=== PATIENT | female | born 1965 | race Caucasian/White ===

== ENCOUNTER 2017-03-30 22:13 | Emergency (ER) | payer BC ==
[2017-03-30 22:25] VITALS: BP 120/73; PULSE 98; TEMP 98.6; BMI 29.2
--- NOTE | 2017-03-31 02:01 | PDOC ---
History of Present Illness - General Chief Complaint: Abscess Boil Stated Complaint: WOUND INFECTION Time Seen by Provider: 03/31/17 00:45 History Source: Patient Exam Limitations: No Limitations - History of Present Illness Initial Comments: 03/31/17 02:01 CC: R buttock abscess Patient is a 51 y.o. female with no significant PMH who presented to our ED today with a c/o a painful abscess on her R buttock. Patient states she thinks the abscess started when she inadvertently scratched herself last Thursday ( March 22) and she noticed an abscess forming so she went to her PCP who gave her a prescription for Keflex. Patient states she did not start the Keflex until this Thursday (03/29) however the pain continued to increase prompting her visit to our facility tonight. Past History - Past Medical History Allergies/Adverse Reactions: Allergies Allergy/AdvReac Type Severity Reaction Status Date / Time No Known Allergies Allergy Verified 03/30/17 22:25 Home Medications: Ambulatory Orders Oxycodone HCl/Acetaminophen [Percocet 10-325 mg Tablet] 1 each PO BID #10 tablet MDD 2 tablets 03/31/17 Sulfamethoxazole/Trimethoprim [Bactrim Ds -] 1 tab PO BID #14 tablet 03/31/17 - Surgical History Appendectomy: Yes Cholecystectomy: Yes - Psycho/Social/Smoking Cessation Hx Suicidal Ideation: No Smoking History: Never smoked Review of Systems - Review of Systems Constitutional: No: Chills, Fever HEENTM: No: Blurred Vision, Double Vision, Tinnitus, Throat Pain Respiratory: No: Cough, Orthopnea Cardiac (ROS): No: Chest Pain, Edema, Lightheadedness, Palpitations ABD/GI: No: Diarrhea, Nausea, Vomiting : No: Burning, Dysuria Psychiatric: No: Anxiety, Depression All Other Systems: Reviewed and Negative *Physical Exam - Vital Signs Last Vital Signs Temp Pulse Resp BP Pulse Ox 98.6 F 98 H 18 120/73 98 03/30/17 22:21 03/30/17 22:21 03/30/17 22:21 03/30/17 22:21 03/30/17 22:21 - Physical Exam General Appearance: Yes: Nourished, Appropriately Dressed HEENT: positive: EOMI, TONYA Neck: positive: Trachea midline, Supple Respiratory/Chest: positive: Lungs Clear, Normal Breath Sounds Cardiovascular: positive: Regular Rhythm, Regular Rate, S1, S2 Gastrointestinal/Abdominal: positive: Normal Bowel Sounds, Soft Integumentary: positive: Other (R sided buttock abscess, circular 3-4 cm area of induration with larger 7-8 cm area of erythema; TTP; purulent discharge expressed) Medical Decision Making - Medical Decision Making 03/31/17 07:05 Patient is a 51 y.o. female who presents with R buttock abscess. Bedside U/S showed fluid collection. Subsequent I&D produced significant serosanginous drainage. Patient instructed to continue Cephaxelin as prescribed by her PCP and given Bactrim for MRSA coverage. Patient to return to ED should she experience severe pain, swelling, fevers, chills, nausea vomiting. *DC/Admit/Observation/Transfer Diagnosis at time of Disposition: Abscess of skin AND/OR subcutaneous tissue - Discharge Dispostion Disposition: HOME Admit: No - Prescriptions Prescriptions: Sulfamethoxazole/Trimethoprim [Bactrim Ds -] 1 tab PO BID #14 tablet Oxycodone HCl/Acetaminophen [Percocet 10-325 mg Tablet] 1 each PO BID #10 tablet MDD 2 tablets - Referrals Referrals: Mary Jo Leavitt [Primary Care Provider] - - Patient Instructions Printed Discharge Instructions: DI for Anal Abscess Additional Instructions: A prescription for Bactrim has been called to your pharmacy. Please take both the Bactrim and Cephaxelin (Keflex) prescribed by your PCP. Please return to the Emergency Department in 48 hours for a wound check and to insure you are healing properly. Should you experience severe pain, shortness of breath, fevers, nausea or vomiting please return to the ED before that time..
--- NOTE | 2017-03-31 05:59 | PDOC ---
Attending Attestation - Resident Resident Name: Becka Wayica - ED Attending Attestation I have performed the following: I have examined & evaluated the patient, The case was reviewed & discussed with the resident, I agree w/resident's findings & plan, Exceptions are as noted - HPI HPI: 03/31/17 05:56 51 yo F with c/o right buttock pain. started one week ago. was started on keflex, 2 days ago, felt worse today wit more pain and swelling increasing size of lump no f/c no drainage. no h/o similar in the past. - Physicial Exam PE: 03/31/17 05:57 awake alert lungs clear heart rrr. skin right buttock with small area of induration eythema. and fluctuance. - Medical Decision Making 03/31/17 05:58 bedside soft tissue ultrasound to confirm presence of fluid. small fluid collection with cobblestoning noted. i &D perfored. serosanginous purulence pus expressed. irrigated. packed. sterile dressing. dc with rx for bactrim in addition to keflex, percocet for pain. dc home. wound check in 48 hours.
== END 2017-03-31 02:54 | disposition home or self-care (01) ==
LOC: JER 22:13
PROC: 0J990ZZ Drainage of Buttock Subcutaneous Tissue and Fascia, Open Approach (ICD-10-PCS; principal; 2017-03-30)
DX: L02.31 Cutaneous abscess of buttock (principal)
CPT/HCPCS: 99281-25

== ENCOUNTER 2017-04-02 07:36 | Emergency (ER) | payer BC ==
[2017-04-02 07:42] VITALS: BP 142/77; PULSE 79; TEMP 98.7; BMI 29.2
--- NOTE | 2017-04-02 08:32 | PDOC ---
Suture Removal/Wound Check HPI - History of Present Illness Chief Complaint: Revisit,Wound Recheck Stated Complaint: REVISIT Time Seen by Provider: 04/02/17 08:31 History Source: Yes: Patient Exam Limitations: Yes: No Limitations Treated at: [facility] ED - Previous ED Treatment Type of procedure performed on last visit: Yes: I&D of Abscess Antibiotics Prescribed: Yes (Pt. placed on Bactrim in the ED. Keflex was prescribed by PCP) - Onset of Previous Treatment Date of Occurence: 03/31/17 (told to f/u in two days) Past History - Travel Traveled outside of the country in the last 30 days: No Close contact w/someone who was outside of country & ill: No - Past Medical History Allergies/Adverse Reactions: Allergies No Known Allergies Allergy (Verified 04/02/17 07:41) Home Medications: Ambulatory Orders Oxycodone HCl/Acetaminophen [Percocet 10-325 mg Tablet] 1 each PO BID #10 tablet MDD 2 tablets 03/31/17 Sulfamethoxazole/Trimethoprim [Bactrim Ds -] 1 tab PO BID #14 tablet 03/31/17 - Social History Smoking Status: Former smoker Suture Removal/Wound Check PE - Physical Exam Laceration/Wound Check Symptoms: reports: Pain (to palpation of the I&D site), Discharge (clear sangeous), Improved. denies: Fever, Chills Pain Intensity: 2 Current Severity Level: Mild Maximum Severity Level: Mild Location of Laceration/Wound: right: Thigh (Posterior R buttock) Medical Decision Making - Medical Decision Making 04/02/17 12:33 I&D site is open and draining serous fluid. Site appears non-infected, no fluctulant. Granulation tissue present. Pt. reports that she accidentally removed the packing in the wound yesterday while changing her dressing. There is some minor irritation to the skin where the paper tape was present. Recommended wearing underwear that will hold gauze in place. Overall healing well. Site was irrigated again with 20cc's of sterile saline. Will discharge pt. home at this time. Pt. understands that she needs to continue her antibiotics and follow up with her PCP. Pt. understands all discharge instructions and all questions were answered at this time. Pt. is comfortable with discharge planning. *DC/Admit/Observation/Transfer Diagnosis at time of Disposition: Wound check, abscess - Discharge Dispostion Disposition: HOME Condition at time of disposition: Improved Admit: No - Referrals Referrals: Mary Jo Leavitt [Primary Care Provider] - - Patient Instructions Printed Discharge Instructions: DI for Incision and Drainage Additional Instructions: Your wound is healing well. It was flushed today in the emergency department. You accidentally removed the packing prior to your visit today. Continue your antibiotic therapy (Bactrim and Keflex) as prescribed. You may take ibuprofen as needed for pain, not to exceed 3,000mg a day. Do warm water soaks twice a day to help with healing. If the tape is bothering your skin, try and wear a different pair of underwear to hold the gauze in place. Follow up with your primary care doctor in one week. Return to the ED if you have worsening pain, redness around the site, fevers, chills, nausea, vomiting or any changes in your symptoms. - Post Discharge Activity Work/School Note: Back to Work
== END 2017-04-02 09:15 | disposition home or self-care (01) ==
LOC: JER 07:36 → JERFT 07:36
DX: Z48.01 Encounter for change or removal of surgical wound dressing (principal)
CPT/HCPCS: 99281-25